=== PATIENT | male | born 1990 | race African-American/Black ===

== ENCOUNTER 2018-10-24 12:21 | Emergency (ER) | payer OTHER ==
[~2018-10-24] VITALS: Ht 172.7 cm; Wt 81.6 kg
[2018-10-24 12:21] VITALS: BP_SYST 129
--- NOTE | 2018-10-24 12:21 | NUR ---
BROUGHT IN BY [facility] SQULATASHA VAN AND TRIAGED. REPORT GIVEN TO SAGAR
--- NOTE | 2018-10-24 12:55 | NUR ---
DR HEATH AT BEDSIDE FOR EVALAUTION.
--- NOTE | 2018-10-24 13:05 | NUR ---
AFTER SPEAKING WITH DR HEATH AND UNDERSTANDING THAT WE DO NOT HAVE DILAUDID IN ER, PT REFUSED TO HAVE TORADOL AND SIGNED OUT AMA.
--- NOTE | 2018-10-24 13:05 | NUR ---
Patient does not wish to proceed with medical care recommended by DR HEATH. Patient given information related to possible complications, up to and including , which could occur as a result of leaving hospital at this time. Patient verbalizes understanding of risks involved leaving against medical advice. Patient has signed AMA form.
== END 2018-10-24 13:51 | disposition left against medical advice (07) ==
LOC: SED 12:21
DX: D57.00 Hb-SS disease with crisis, unspecified (principal); Z90.49 Acquired absence of other specified parts of digestive tract; Z88.6 Allergy status to analgesic agent; Z88.8 Allergy status to other drugs, medicaments and biological substances
CPT/HCPCS: 99283

== ENCOUNTER 2019-12-08 11:04 | Emergency (ER) | payer OTHER ==
[~2019-12-08] VITALS: Ht 172.7 cm; Wt 77.1 kg
[2019-12-08 11:12] VITALS: BP_SYST 121
[2019-12-08 11:20] VITALS: BP_SYST 121
[2019-12-08] MEDS ORDERED: fentaNYL CITRATE/PF 100 MCG/2 ML AMP IVP ONE (11:45)
[2019-12-08] MEDS ORDERED: DIPHENHYDRAMINE INJ 50 MG/ML VIAL IVP ONE (11:45)
[2019-12-08] MEDS ORDERED: NACL 0.9% 1,000 ML IV ONE (11:45)
== END 2019-12-08 12:03 | disposition left against medical advice (07) ==
LOC: SED 11:04
DX: M79.18 Myalgia, other site (principal); Z53.20 Procedure and treatment not carried out because of patient's decision for unspecified reasons
CPT/HCPCS: 99281; J3010; J1200

== ENCOUNTER 2020-01-24 04:27 | Emergency (ER) | payer OTHER ==
[~2020-01-24] VITALS: Ht 172.7 cm; Wt 81.6 kg
[2020-01-24 04:45] VITALS: BP_SYST 111
[2020-01-24] MEDS ORDERED: NACL 0.9% 1,000 ML IV ONE (05:15)
[2020-01-24] MEDS ORDERED: fentaNYL CITRATE/PF 100 MCG/2 ML AMP IVP ONE (05:15)
== END 2020-01-24 05:10 | disposition left against medical advice (07) ==
LOC: SED 04:27
DX: M54.5 Low back pain (principal); D57.1 Sickle-cell disease without crisis; M79.604 Pain in right leg; M79.605 Pain in left leg; Z88.5 Allergy status to narcotic agent; Z88.8 Allergy status to other drugs, medicaments and biological substances
CPT/HCPCS: 99281